=== PATIENT | male | born 1985 | race Caucasian/White ===

== ENCOUNTER 2020-05-07 01:24 | Emergency (ER) | payer BC, SELFPAY ==
--- NOTE | ~2020-05-07 | CT_ITS ---
EXAMINATION: CT abdomen pelvis wo con DATE: 05/07/2020 02:59 INDICATION: Right flank pain TECHNIQUE: Computed tomography (CT) of the abdomen and pelvis was performed without intravenous contr ast. Automated exposure control and iterative reconstruction technique were employed. Exam dose: 146 6.00 mGy-cm total exam DLP. COMPARISON: May 22, [address] abdomen pelvis FINDINGS: There is patchy left lower lobe infiltrate. The remaining visualized lung bases are clear. No pleural effusion. Normal heart size. No pericardial effusion. Hepatic steatosis. No hepatic space-occupying mass lesion is evident. The gallbladder is present. No gallbladder wall thickening or pericholecystic fluid or stranding is noted. No bile duct or pancreati c duct dilatation. No pancreatic mass lesion or calcification. Normal splenic size. Normal morphology of the adrenal glands. No right renal mass lesion or calculus or right-sided hydroureteronephrosis. Pinpoint upper pole nonobstructing left renal calculus. No left renal mass lesion is noted. 4 mm proximal left ureteral calculus with mild left hydronephrosis. The urinary bladder is unremarkable. Mild prostate calcification. Normal caliber of the abdominal aorta. No intraperitoneal or retroperitoneal or pelvic mass lesion or adenopathy or ascites. Minimal colonic diverticulosis; no CT evidence of diverticulitis. No bowel obstruction, bowel wall th ickening, pneumatosis or intraperitoneal free air. Included skeletal structures are unremarkable. IMPRESSION: 4 mm proximal left ureteral obstructing calculus with mild left hydronephrosis Pinpoint upper pole nonobstructing left renal calculus Hepatic steatosis Minimal colonic diverticulosis Left lower lobe infiltrate Reviewed, dictated and finalized at [facility] Reviewed, dictated and finalized at [facility] IMPRESSION: 4 mm proximal left ureteral obstructing calculus with mild left hy dronephrosis Pinpoint upper pole nonobstructing left renal calculus Hepatic steatosis Minimal colonic diverticulosis Left lower lobe infiltrate
[2020-05-07 01:28] VITALS: BP 131/88; PULSE 86; RESP 20; TEMP 36.7; O2SAT 96
[2020-05-07 02:27] LABS: Basophils Percent Auto 0.4 % (0.2-1.2); Eosinophils Absolute Auto 0.1 K/mm3 (0-0.3); Eosinophils Percent Auto 1.8 % (0-4.4); Hematocrit 50.7 % (42.0-52.0); Hemoglobin 17.5 g/dL (14.0-18.0); Immature Granulocyte Absolute 0.01 K/mm3 (0.00-0.031); Immature Granulocyte Percent A 0.2 % (0-0.5); Lymphocytes Absolute Auto 1.15 K/mm3 (0.9-3.2); Lymphocytes Percent Auto 20.8 % (18.3-44.2); Mean Corpuscular HGB Conc 34.5 g/dl (32-36); Mean Corpuscular Volume 83.9 fl (80-100); Mean Platelet Volume 10.6 fl (7.4-10.4); Monocytes Absolute Auto 0.3 K/mm3 (0.1-0.6); Monocytes Percent Auto 5.8 % (2.6-8.5); Neutrophils Absolute Auto 3.9 K/mm3 (1.3-6.7); Platelet Count Result 166 k/mm3 (150-375); Red Blood Count 6.04 M/mm3 (4.6-6.20); Red Cell Distribution Width 11.9 % (11.5-14.5); White Blood Count 5.5 K/mm3 (4.5-10.0)
--- NOTE | 2020-05-07 02:33 | ED.ABDPAIN ---
HPI - Abdominal Pain General Chief Complaint: Abdominal Pain Stated Complaint: L Flank pain Time Seen by Provider: 05/07/20 01:35 Source: patient Mode of arrival: ambulatory Limitations: no limitations History of Present Illness HPI narrative: Patient is a 35-year-old male complaining of flank pain accompanied by nausea, vomiting and diarrhea that started today. Patient states his pain is an 8 out of 10, sharp radiating to his left testicle. Patient describes his vomitus as nonbilious nonbloody. Patient describes diarrhea as loose watery. Patient denies any urinary symptoms. Patient denies any fever or chills. Related Data Allergies Allergy/AdvReac Type Severity Reaction Status Date / Time No Known Allergies Allergy Verified 05/07/20 01:32 Review of Systems Review of Systems: All systems reviewed & are unremarkable except as noted in HPI and below Constitutional: Constitutional: Denies body ache(s), Denies chills, Denies excessive sweating, Denies fatigue, Denies fever(s), Denies headache(s), Denies lethargy, Denies malaise, Denies weakness and Denies weight loss Eyes: Eyes: Denies blurry vision, Denies change in vision and Denies loss of vision ENT: Denies dizziness, Denies ear discharge, Denies headache(s), Denies lip swelling, Denies epistaxis, Denies nasal congestion, Denies neck pain, Denies throat swelling and Denies tongue swelling Cardiovascular: Cardiovascular: Denies chest pain, Denies chest pain at rest, Denies chest pain with activity, Denies diaphoresis, Denies rapid heart rate, Denies edema, Denies irregular heart rhythm, Denies lightheadedness, Denies palpitations, Denies dyspnea and Denies dyspnea on exertion Respiratory: Respiratory: Denies chest congestion, Denies cough, Denies hemoptysis, Denies dyspnea and Denies dyspnea on exertion Gastrointestinal: Gastrointestinal: Denies abdominal pain, Denies melena, Denies hematochezia and Denies hematemesis Musculoskeletal: Musculoskeletal: Denies abnormal gait, Denies deformity, Denies joint swelling, Denies limited range of motion, Denies neck pain and Denies numbness Neurologic: Denies Abnormal speech present, Denies abnormal gait, Denies confusion, Denies dizziness, Denies headache(s), Denies focal weakness, Denies loss of vision, Denies numbness, Denies Other visual disturbances, Denies Sensory deficit (Neuro) and Denies weakness Psychiatric: Psychiatric: Denies confusion, Denies depression, Denies auditory hallucinations, Denies homicidal ideation and Denies suicidal ideation Endocrine: Endocrine: Denies cold intolerance, Denies excessive sweating, Denies fatigue, Denies heat intolerance and Denies palpitations Hematologic/Lymphatic: Hematologic/Lymphatic: Denies easy bleeding and Denies easy bruising Allergic/Immunologic: Allergic/Immunologic: Denies lip swelling, Denies throat swelling and Denies tongue swelling [facility] Social History Social History Gender identity (if verbalized by the patient): Male Exam Const: General: cooperative, healthy appearing, comfortable, no acute distress, well developed, alert and awake; No confusion Orientation/consciousness: oriented to person, oriented to place, oriented to time, patient oriented x3 and No confusion Limitations: no limitations HENMT: Head: normal to inspection, normocephalic and atraumatic Ears: hearing grossly normal bilaterally, TM normal on the right and TM normal on the left General nose exam: Normal external nose present, Normal nares present and No nasal discharge present Face and sinus: normal facial exam Mouth: Yes Normal oral and palatal mucosa present, Yes lip normal, Yes tongue normal and Yes oropharynx normal Throat: posterior oropharynx normal, tonsils normal and uvula midline Eyes: General: appearance normal, both eyes and all related structures Pupils: Equal, round and reactive pupils present EOM: EOMs intact bilaterally Neck: Neck
[2020-05-07 02:36] LABS: Anion Gap 9 mmol/L (8-16); Blood Urea Nitrogen 17 mg/dL (9-20); Calcium 9.2 mg/dL (8.4-10.2); Carbon Dioxide 27 mmol/L (22-30); Chloride 101 mmol/L (98-107); Estimated CRCL calculation 90 ml/min; Estimated Glomerular Filt Rate 57; Glucose 138 mg/dL (75-110); Potassium 3.8 mmol/L (3.4-5.0); Sodium 137 mmol/L (137-145)
[2020-05-07] MEDS: KETOROLAC 30 MG/ML VIAL (*BKC) IV PUSH (02:45)
[2020-05-07] MEDS: PROMETHAZINE HCL 25 MG/ML AMPUL 12.5 MG IV PUSH (02:45)
[2020-05-07] MEDS: SODIUM CHLORIDE 0.9% IV 1,000 ML 999 ML IV CONT (02:45)
[2020-05-07 03:04] LABS: Add Urine Microscopic? YES; Appearance Urine Clear (Clear); Bilirubin Urine Negative (Negative); Blood Urine 3+ (Negative); Color Urine Yellow (Yellow); Glucose Urine UA Negative (Negative); Ketones Urine 1+ mg/dL (Negative); Leukocyte Esterase Ur Negative LEU/UL (Negative); Mucus Urine Heavy /lpf; Nitrate Urine Negative (Negative); Protein Urine 2+ mg/dL (Negative); RBC Urine 51-75 /hpf (0-2); Specific Grav Ur 1.026 (1.001-1.035); Urobilinogen Urine Negative mg/dL (<2.0)
--- NOTE | 2020-05-07 04:09 | PC.NURSE ---
pt left prior to med given ,was leaving due to ride here
[2020-05-07 04:12] VITALS: BP 129/82; PULSE 81; RESP 18; O2SAT 98
== END 2020-05-07 04:15 | disposition home or self-care (01) ==
PROVIDERS: Emergency Provider Emergency Medicine; PCP Family Medicine
DX: N13.9 Obstructive and reflux uropathy, unspecified (principal)
CPT/HCPCS: 36415; 74176; 80048; 81001; 85025; 96361; 96374; 96375; 99284; J1885; J2550; J7030

== ENCOUNTER 2020-10-10 10:43 | Emergency (ER) | payer BC, SELFPAY ==
[2020-10-10 11:01] VITALS: BP 152/92; PULSE 83; RESP 18; TEMP 37.1; O2SAT 97
--- NOTE | 2020-10-10 11:15 | ED.GENADULT ---
HPI - General Adult General Chief complaint: Wound/Laceration Stated complaint: ABCESS R CHEST Time Seen by Provider: 10/10/20 10:51 Source: patient Mode of arrival: ambulatory Limitations: no limitations History of Present Illness HPI narrative: Patient presents for evaluation of raised, swollen, erythematous lesion to the right anterior chest wall since Monday of this week. States that he had a cyst in the affected area about 5 years ago was informed that he did not need intervention unless his symptoms were quite bothersome. He states last night the lesion began draining. No fever, chills, nausea, vomiting. He is not diabetic. Movement makes his symptoms worse. Related Data Allergies Allergy/AdvReac Type Severity Reaction Status Date / Time No Known Allergies Allergy Verified 10/10/20 11:04 Review of Systems Review of Systems: Narrative: CONSTITUTIONAL: Denies fever, chills, or sweats. EYES: Denies visual changes, redness, or discharge. ENT: Denies rhinorrhea, congestion, sore throat, or otalgia. CARDIOVASCULAR: Denies chest pain, palpitations, or edema. RESPIRATORY: Denies cough or dyspnea. GASTROINTESTINAL: Denies abdominal pain, nausea, vomiting, or diarrhea. GENITOURINARY: Denies dysuria or hematuria. SKIN: Reports painful, swollen, erythematous lesion to the right anterior chest wall. Denies rash or itching. MUSCULOSKELETAL: Denies back pain, joint pain, or myalgia. NEUROLOGIC: Denies headache, numbness, dizziness, or weakness. PSYCHIATRIC: Denies anxiety or depression. [facility] Past Medical History Medical History (Updated 10/10/20 @ 14:00 by KALI Lovett, ) No significant past medical history Surgical History Surgical History No pertinent past surgical history Family History Family History Father COVID-19 Social History Social History Smokeless tobacco user: dissolvable tobacco Alcohol intake: current Alcohol use details: Socially Substance use: current Substance use type: marijuana Living arrangements: with family Gender identity (if verbalized by the patient): Male Sexual Orientation (if Verbalized by the Patient): Straight or Heterosexual Spiritual care concerns: No Exam Narrative: Exam Narrative: GENERAL: Well-appearing, well-nourished, and in no acute distress. HEAD: Normocephalic, atraumatic. EYES: PERRLA and EOMI. ENT: Nares clear, no rhinorrhea or epistaxis. Mucous membranes moist. Oropharynx without tonsillar hypertrophy exudate or other lesions. Bilateral TMs pearly mckeon nonbulging NECK: Supple. No adenopathy or masses. No carotid bruits or JVD CHEST: Clear to auscultation. No respiratory distress. No wheezes rales or rhonchi HEART: Regular rate and rhythm. No murmur heard. Normal peripheral pulses. ABDOMEN: Soft, nontender, nondistended, normal active bowel sounds. EXTREMITIES: Normal range of motion. No edema. SKIN: Approximately 5 cm raised, erythematous, fluctuant lesion to the right anterior chest wall, just below the clavicle. Warm, dry, no rash. NEURO: No focal deficits. Alert and oriented x3. PSYCH: Normal mood and affect. Course Course Emergency Course: This is a 35-year-old male that presented with complaints of a painful swollen lesion to the right anterior chest. He has a history of a cystic structure in the affected area. After obtaining informed consent, I&D was performed. This appears to be an infected sebaceous cyst. There was a copious amount of purulent drainage from the area. Wound was packed. Patient tolerated well. Advised on wound care. Wound culture obtained. Vital Signs Vital signs: Vital Signs Temperature 37.1 C 10/10/20 11:01 Pulse Rate 83 10/10/20 11:01 Respiratory Rate 18 10/10/20 11:01 Blood Pressure 152/92 H 10/10/20 11:0
[2020-10-10 14:17] VITALS: BP 142/78; PULSE 78; RESP 18; O2SAT 99
== END 2020-10-10 14:19 | disposition home or self-care (01) ==
PROVIDERS: Emergency Provider Nurse Practitioner; PCP Family Medicine
DX: L72.3 Sebaceous cyst (principal); L08.9 Local infection of the skin and subcutaneous tissue, unspecified; F17.290 Nicotine dependence, other tobacco product, uncomplicated
CPT/HCPCS: 10060; 87070; 87205; 99283

== ENCOUNTER 2023-03-20 08:32 | Emergency (ER) | payer BC, SELFPAY ==
[2023-03-20 08:44] VITALS: BP 134/105; PULSE 106; RESP 16; TEMP 36.7; O2SAT 96
--- NOTE | 2023-03-20 08:44 | ED.URI ---
HPI - URI/Sore Throat General Chief Complaint: Upper Respiratory Infection Stated Complaint: Cough Time Seen by Provider: 03/20/23 08:44 Source: patient Mode of arrival: ambulatory Limitations: no limitations History of Present Illness HPI Narrative: 38 yo M presents with c/o cough, chest congestion for 3 wks. Has been taking mucinex for 3 wks. Went to in [place] last week and was told allergies and now also taking zyrtec and flonase. Reports SOB with exertion last few days with coughgin at night, cannot take deep breath without cough. Afebrile. All systems reviewed and negative except as noted above. Related Data Home Medications Medication Instructions Recorded Confirmed No Home Medications 03/20/23 03/20/23 Allergies Allergy/AdvReac Type Severity Reaction Status Date / Time No Known Allergies Allergy Verified 03/20/23 08:34 Review of Systems Review of Systems: CONSTITUTIONAL: Denies fever, chills, or sweats. EYES: Denies visual changes, redness, or discharge. ENT: Denies rhinorrhea, congestion, sore throat, or otalgia. CARDIOVASCULAR: Denies chest pain, palpitations, or edema. RESPIRATORY: reports cough, chest congestion, round sputum and dyspnea with exertion. GASTROINTESTINAL: Denies abdominal pain, nausea, vomiting, or diarrhea. GENITOURINARY: Denies dysuria or hematuria. SKIN: Denies rash or itching. MUSCULOSKELETAL: Denies back pain, joint pain, or myalgia. NEUROLOGIC: Denies headache, numbness, or weakness. PSYCHIATRIC: Denies anxiety or depression. All other systems reviewed are negative, except as documented in HPI. [facility] Past Medical History Medical History (Updated 03/20/23 @ 08:51 by Lilly Marshall NP) No significant past medical history Surgical History Surgical History No pertinent past surgical history Family History Family History Father COVID-19 Social History Social History Smokeless tobacco user: dissolvable tobacco Alcohol intake: current Alcohol use details: Socially Substance use: current Substance use type: marijuana Living arrangements: with family Gender identity (if verbalized by the patient): Male Sexual Orientation (if Verbalized by the Patient): Straight or Heterosexual Spiritual care concerns: No Comments At time of signature, agree with nursing past medical, surgical, social and family history. There is no relevant family history pertinent to the presenting complaint. Exam Narrative: GENERAL: This is a well-nourished, well-developed patient, in no apparent distress. HEAD: normocephalic, atraumatic. EYES: PERRL. Sclera clear/white. Vision is grossly intact. EARS: External ears normal, auditory canals clear and without drainage, TMs normal without perforation. Hearing grossly intact. NOSE: External nose normal with no obvious nasal discharge, nares without redness, no rhinorrhea. THROAT: Mucous membranes moist, posterior pharynx clear. NECK: Neck supple, non-tender without lymphadenopathy, masses or thyromegaly. CARDIOVASCULAR: Regular rate and rhythm without murmurs, gallops, or rubs. RESPIRATORY: rhonchi throughout all lung south. Breath sounds equal bilaterally. No wheezes, rales SKIN: warm, Dry, intact with no suspicious lesions or rash, good texture and turgor. NEURO: awake, alert, and oriented to person, place and time. There were no obvious focal neurologic abnormalities. EXTREMITIES: No joint tenderness, effusion, or edema noted. Course Course Level of Care: Express Care Visit Vital Signs Vital signs: Vital Signs Temperature 36.7 C 03/20/23 08:44 Pulse Rate 106 H 03/20/23 08:44 Respiratory Rate 16 03/20/23 08:44 Blood Pressure 134/105 H 03/20/23 08:44 Pulse Oximetry 96 03/20/23 08:44 Oxygen Delivery Daniela
== END 2023-03-20 08:55 | disposition home or self-care (01) ==
PROVIDERS: Emergency Provider Nurse Practitioner Family; PCP Family Medicine
DX: J20.8 Acute bronchitis due to other specified organisms (principal)
CPT/HCPCS: 99213; G0463

== ENCOUNTER 2023-06-01 10:00 | Emergency (ER) | payer BC, SELFPAY ==
[2023-06-01 10:12] VITALS: BP 133/69; PULSE 84; RESP 16; TEMP 38.6; O2SAT 99
[2023-06-01 10:21] VITALS: BP 133/69; PULSE 84; RESP 16; TEMP 38.6; O2SAT 99
--- NOTE | 2023-06-01 11:13 | ED.URI ---
HPI - URI/Sore Throat General Chief Complaint: Upper Respiratory Infection Stated Complaint: Bodyaches/Cough Time Seen by Provider: 06/01/23 11:06 Source: patient and RN notes reviewed Mode of arrival: ambulatory Limitations: no limitations History of Present Illness HPI Narrative: Patient presents today with a 3 day history of body aches, nasal congestion and sinus pressure, chills, sweats, headache, fever up to 101.2, diarrhea. He started vomiting this morning. Currently rates his pain 2/10 and has been taking ibuprofen. Related Data Home Medications Medication Instructions Recorded Confirmed No Home Medications 03/20/23 06/01/23 Allergies Allergy/AdvReac Type Severity Reaction Status Date / Time No Known Allergies Allergy Verified 06/01/23 10:12 Review of Systems Review of Systems: CONSTITUTIONAL: + fever, body aches, chills, sweats EYES: Denies visual changes, redness, or discharge. ENT: Denies rhinorrhea, sore throat, or otalgia.+ congestion CARDIOVASCULAR: Denies chest pain, palpitations, or edema. RESPIRATORY: Denies cough or dyspnea. GASTROINTESTINAL: Denies abdominal pain, nausea. + vomiting, diarrhea GENITOURINARY: Denies dysuria or hematuria. SKIN: Denies rash, itching, or wounds. MUSCULOSKELETAL: Denies back pain, joint pain, or myalgia. NEUROLOGIC: Denies numbness, tingling, or weakness.+ vomiting PSYCH: Denies depression or anxiety. [facility] Past Medical History Medical History No significant past medical history Surgical History Surgical History No pertinent past surgical history Family History Family History Father COVID-19 Social History Social History Smokeless tobacco user: dissolvable tobacco Alcohol intake: current Alcohol use details: Socially Substance use: current Substance use type: marijuana Living arrangements: with family Gender identity (if verbalized by the patient): Male Sexual Orientation (if Verbalized by the Patient): Straight or Heterosexual Spiritual care concerns: No Comments At time of signature, I have reviewed and agree with nursing past medical, surgical, social and family history unless otherwise noted. Please see nursing chart for further information. There is no relevant family history pertinent to the presenting complaint Exam Narrative: GENERAL: Well nourished, well developed, no acute distress. Mildly appearing, non-toxic. EYES: PERRL, EOMs normal, conjunctivae normal. ENT: Head normocephalic and atraumatic. Nose congested without drainage. TMs clear with normal light reflex. Pharynx without erythema or edema. Uvula midline. Neck supple. No lymphadenopathy. Full ROM of neck. Mucous membranes moist. RESP: No sign of respiratory distress. Clear to auscultation bilaterally. CARDIOVASCULAR: Regular rate and rhythm. No murmurs, rubs, or gallops appreciated. ABDOMINAL: Soft, nontender, nondistended. Normal bowel sounds. MUSC/SKEL: Good strength, good range of movement. Moves all extremities equally. NEURO: Alert. Good coordination. SKIN: Warm, dry, no rash, normal cap refill. Skin turgor normal. PSYCH: Affect and mood appropriate. Course Course Level of Care: Express Care Visit Vital Signs Vital signs: Vital Signs Temperature 101.4 F H 06/01/23 10:12 Pulse Rate 84 06/01/23 10:12 Respiratory Rate 16 06/01/23 10:12 Blood Pressure 133/69 06/01/23 10:12 Pulse Oximetry 99 06/01/23 10:12 Oxygen Delivery Room Air 06/01/23 10:12 Temperature 101.4 F H 06/01/23 10:21 Pulse Rate 84 06/01/23 10:21 Respiratory Rate 16 06/01/23 10:21 Blood Pressure 133/69 06/01/23 10:21 Pulse Oximetry 99 06/01/23 10:21 Oxygen Delivery Room Air 06/01/23 10:2
== END 2023-06-01 11:21 | disposition home or self-care (01) ==
PROVIDERS: Emergency Provider Nurse Practitioner; PCP Family Medicine
DX: J10.1 Influenza due to other identified influenza virus with other respiratory manifestations (principal); Z20.822 Contact with and (suspected) exposure to COVID-19; F17.290 Nicotine dependence, other tobacco product, uncomplicated; F12.90 Cannabis use, unspecified, uncomplicated
CPT/HCPCS: 87426; 87804; 99213; G0463